=== PATIENT | male | born 1975 | race Asian ===

== ENCOUNTER 2016-11-12 10:43 | Emergency (ER) | payer SELFPAY ==
[~2016-11-12] VITALS: Ht 172.7 cm; Wt 73.0 kg
[2016-11-12 11:15] VITALS: BP 107/73
== END 2016-11-12 12:50 | disposition home or self-care (01) ==
LOC: ER 10:43
DX: Z76.0 Encounter for issue of repeat prescription (principal)
CPT/HCPCS: 99281